=== PATIENT | female | born 1945 | race Caucasian/White ===

== ENCOUNTER 2017-02-06 14:40 | Outpatient (CLI) | payer MEDICARE, OTHER ==
[2015-10-20 11:43] VITALS: BP 164/87
== END 2017-02-06 14:42 ==
LOC: POD 14:40
PROVIDERS: ATTEND Podiatrist
DX: B35.1 Tinea unguium (principal); M79.674 Pain in right toe(s); M79.675 Pain in left toe(s)
CPT/HCPCS: 11721; G0463

== ENCOUNTER 2017-05-05 10:36 | Outpatient (CLI) | payer MEDICARE, OTHER ==
[2015-10-20 11:43] VITALS: BP 164/87
== END 2017-05-05 12:36 ==
LOC: LABRHC 10:36
PROVIDERS: ATTEND Family Medicine
DX: N39.0 Urinary tract infection, site not specified (principal)
CPT/HCPCS: 87086

== ENCOUNTER 2017-05-08 13:35 | Outpatient (CLI) | payer MEDICARE, OTHER ==
[2015-10-20 11:43] VITALS: BP 164/87
== END 2017-05-08 13:45 ==
LOC: POD 13:35
PROVIDERS: ATTEND Podiatrist
DX: B35.1 Tinea unguium (principal); M79.674 Pain in right toe(s); M79.675 Pain in left toe(s)
CPT/HCPCS: 11721; G0463

== ENCOUNTER 2017-08-07 13:26 | Outpatient (CLI) | payer MEDICARE, OTHER ==
[2015-10-20 11:43] VITALS: BP 164/87
== END 2017-08-07 13:27 ==
LOC: POD 13:26
PROVIDERS: ATTEND Podiatrist
DX: B35.1 Tinea unguium (principal); M79.674 Pain in right toe(s); M79.675 Pain in left toe(s)
CPT/HCPCS: 11721; G0463

== ENCOUNTER 2017-09-03 16:07 | Outpatient (CLI) | payer MEDICARE, OTHER ==
[2015-10-20 11:43] VITALS: BP 164/87
== END 2017-09-03 16:10 ==
LOC: LABRHC 16:07
PROVIDERS: ATTEND Family Medicine
DX: R30.0 Dysuria (principal)
CPT/HCPCS: 87086; 87186

== ENCOUNTER 2017-09-26 08:56 | Emergency (ER) | payer MEDICARE, OTHER ==
--- NOTE | 2017-09-26 09:13 | ED Physician Documentation ---
Epistaxis - HISTORIAN Historian: patient, spouse - HPI Stated Complaint: nose bleed x 2 hours Chief Complaint: Epistaxis Onset: hours (2) Timing: still present Location: bilateral Severity: mild Associated Symptoms: headache. denies: recent injury, recent illness, fever, chills, sweating, nausea, vomiting blood, light-headedness Further Comments: yes (she states she has had this issue in the past although her PCP knows and did treat her for sinus issues She denies any injury. She does report she is a frequent nose blower and she has had sinus drainage) - ROS MS/SKIN/LYMPH: denies: excessive bruising, bleeding from gums, bleeding from GI , bleeding from , swollen glands, joint pain EYES/ENT: denies: problems with vision, sore throat GI/: denies: black stool, problems urinating CVS/RESP: denies: chest pain NEURO/PSYCH: denies: dizziness, anxiety, depression - PAST HX Past History: other (HTN, depression and hyperlipidemia ) Other History: other (Lip cancer ) Immunizations: referred to PCP Allergies/Adverse Reactions: Allergies Allergy/AdvReac Type Severity Reaction Status Date / Time No Known Allergies Allergy Verified 09/26/17 09:15 Home Medications: Ambulatory Orders Medication Instructions Recorded Acetaminophen [Tylenol Extra 500 mg PO Q8H PRN 01/17/13 Strength] Aspirin 81 mg PO D 01/17/13 Calc/D3/Mag/Zn/[place] Blocker/[place] 1 each PO D 01/17/13 [Calcium 600 Mg + Vit D Tab] Polyethylene Glycol 3350 [Miralax] 17 gm PO D PRN 01/17/13 - SOCIAL HX Smoking History: non-smoker Alcohol Use: none Drug Use: none - FAMILY HX Family History: No - VITAL SIGNS Vital Signs: Vital Signs Temp Pulse Resp BP Pulse Ox 164/87 10/20/15 11:59 - REVIEWED ASSESSMENTS Nursing Assessment Reviewed: Yes Vitals Reviewed: Yes Epistaxis Physical Exam - EXAM General Appearance: no acute distress, alert Nose: nml inspection, fresh clots (L), fresh clots (R), active bleeding (L), minimal. No: foreign body (R), foreign body (L) Eyes/Ears: eyes nml inspection, PERRL Mouth: lips nml, gums nml, pharynx nml Neuro/Psych: oriented x3, neuro intact, mood/affect nml Respiratory: no resp distress CVS: reg rate & rhythm, heart sounds normal, no murmur Skin: nml color, no skin rash Discharge Clincal Impression: Epistaxis not due to trauma Referrals: Lexus Singleton MD [Primary Care Provider] - 2 Days Condition: Stable Disposition: 01 HOME, SELF-CARE Decision to Admit: NO Date of Decison to Admit: 09/26/17 Decision Time: 09:47
[2017-09-26] MEDS: OXYMETAZOLINE HCL 0.05% NASAL SPRAY NS ONE ×2 (09:27→09:30)
[2017-09-26 10:16] VITALS: BP 135/77
== END 2017-09-26 09:51 | disposition home or self-care (01) ==
LOC: ED 08:56
DX: R04.0 Epistaxis (principal)
CPT/HCPCS: 99283

== ENCOUNTER 2017-10-19 13:05 | Outpatient (CLI) | payer MEDICARE, OTHER | END 2017-10-19 13:06 | LOC: LABRHC 13:05 | PROVIDERS: ATTEND Family Medicine | DX: R30.0 Dysuria (principal) | CPT/HCPCS: 87086; 87186 ==

== ENCOUNTER 2017-11-03 13:44 | Outpatient (CLI) | payer MEDICARE, OTHER | END 2017-11-03 13:45 | LOC: POD 13:44 | PROVIDERS: ATTEND Podiatrist | DX: B35.1 Tinea unguium (principal); M79.674 Pain in right toe(s); M79.675 Pain in left toe(s) | CPT/HCPCS: 11721; G0463 ==

== ENCOUNTER 2018-01-22 13:45 | Outpatient (CLI) | payer MEDICARE, OTHER | END 2018-01-22 13:50 | LOC: POD 13:45 | PROVIDERS: ATTEND Podiatrist | DX: B35.1 Tinea unguium (principal); M79.674 Pain in right toe(s); M79.675 Pain in left toe(s) | CPT/HCPCS: 11721; G0463 ==

== ENCOUNTER 2018-03-30 15:27 | Outpatient (CLI) | payer MEDICARE, OTHER | END 2018-03-30 15:30 | LOC: POD 15:27 | PROVIDERS: ATTEND Podiatrist | DX: B35.1 Tinea unguium (principal); M79.674 Pain in right toe(s); M79.675 Pain in left toe(s) | CPT/HCPCS: 11721; G0463 ==

== ENCOUNTER 2018-09-17 11:50 | Outpatient (CLI) | payer MEDICARE, OTHER ==
[2018-09-17 17:02] LABS: DIRECT BILIRUBIN <0.2 mg/dL (<0.4)
== END 2018-09-17 11:52 ==
LOC: LAB 11:50
PROVIDERS: ATTEND Podiatrist Foot & Ankle Surgery
DX: B35.1 Tinea unguium (principal)
CPT/HCPCS: 36415; 80076

== ENCOUNTER 2018-11-23 09:03 | Outpatient (CLI) | payer MEDICARE, OTHER ==
[2018-11-23 18:01] LABS: DIRECT BILIRUBIN <0.2 mg/dL (<0.4)
== END 2018-11-23 09:06 ==
LOC: LAB 09:03
PROVIDERS: ATTEND Podiatrist Foot & Ankle Surgery
DX: B35.1 Tinea unguium (principal)
CPT/HCPCS: 36415; 80076

== ENCOUNTER 2018-12-03 08:09 | Outpatient (CLI) | payer MEDICARE, OTHER ==
--- NOTE | 2018-12-03 18:39 | Diagnostic Imaging Report ---
JING DOMINGUEZ [facility] [address] [facility] [address] [place] [address]. [id number] Report Submission Date: Dec 03, 2018 9:21:28 AM FLAT BREAKDOWN PROCESSOR Patient Study Name: CHASITY FARRAR Date: Dec 03, 2018 8:33:50 AM FLAT BREAKDOWN PROCESSOR Modality Type: US Gender: F Description: US RENAL : 45 Institution: [facility] Physician: JING DOMINGUEZ Examination: Ultrasound kidneys History: Cyst found on kidneys on a MRI because of back pain Comparison exams: None provided. Findings: Right kidney measures 12.0 cm in length. Left kidney measures 11.2 cm in length. No evidence for cortical mass bilaterally. Cyst of the inferior margin the right kidney measuring 3.7 x 3.5 x 3.6 cm. Mid left kidney cortical cyst measuring 3.0 x 3.6 x 3.0 cm. No abnormal dilation of the intrarenal collecting system. Visualized bladder margin without gross irregularity. Bladder volume 237 mL. Impression: Bilateral renal cysts. No evidence for cortical mass or obstruction. Electronically signed on Dec 03, 2018 9:21:28 AM FLAT BREAKDOWN PROCESSOR by: Calderon CARDONA
== END 2018-12-03 08:15 ==
LOC: RAD 08:09
PROVIDERS: ATTEND Family Medicine
DX: N28.1 Cyst of kidney, acquired (principal)
CPT/HCPCS: 76775

== ENCOUNTER 2018-12-06 15:41 | Outpatient (CLI) | payer MEDICARE, OTHER ==
[2018-12-06 17:44] LABS: eGFR (Non-African) > 60
== END 2018-12-06 15:43 ==
LOC: LAB 15:41
PROVIDERS: ATTEND Family Medicine
DX: N28.1 Cyst of kidney, acquired (principal)
CPT/HCPCS: 36415; 80048

== ENCOUNTER 2019-03-29 10:03 | Outpatient (CLI) | payer MEDICARE, OTHER ==
--- NOTE | 2019-03-29 11:15 | Diagnostic Imaging Report ---
JING DOMINGUEZ [facility] [address] [address] Report Submission Date: March 29, 2019 11:14:08 AM CDT Patient Study Name: CHASITY FARRAR Date: March 29, 2019 12:00:00 AM CDT Modality Type: DEXA\OT Gender: F Description: : 45 Institution: [facility] Physician: JING DOMINGUEZ Examination: Bone density History: Assess bone mineralization Comparison exams: 30 December 2010 Technique: DEXA protocol Findings: Average bone mineral density from L1 through L4: 1.452 grams cm2. T score: 2.1 Average bone mineral density of the left femoral neck: 1.008 grams cm2. T score: -0.2 Average bone mineral density of the right femoral neck: 1.136 grams cm2. T score: 1.0 Impression: Normal lumbar spine and hip mineralization for age Electronically signed on March 29, 2019 11:14:08 AM CDT by: Calderon CARDONA
== END 2019-03-29 10:04 ==
LOC: RAD 10:03
PROVIDERS: ATTEND Family Medicine
DX: M81.0 Age-related osteoporosis without current pathological fracture (principal)
CPT/HCPCS: 77080

== ENCOUNTER 2019-04-28 20:22 | Emergency (ER) | payer MEDICARE, OTHER ==
[2019-04-28] MEDS ORDERED: NORMAL SALINE 1,000 ML IV.SOLN IV ONE (20:57)
[2019-05-09 08:43] LABS: BASOPHILS % 0.5 % (0.0-1.5); NEUTROPHILS # 5.3 # k/uL (1.4-7.7); eGFR (Non-African) > 60
[2019-05-09 08:46] LABS: APPEARANCE,URINE CLEAR (CLEAR); COLOR,URINE YELLOW (YELLOW)
[2019-05-09 08:47] LABS: OCCULT BLOOD,URINE NEGATIVE (NEGATIVE)
--- NOTE | 2019-06-16 18:24 | Diagnostic Imaging Report ---
KENDALL MENDIOLA [facility] [address] [facility] [address] [place], [place]. [address] Report Submission Date: Apr 28, 2019 9:32:04 PM CDT Patient Study Name: CHASITY FARRAR Date: Apr 28, 2019 9:17:46 PM CDT Modality Type: CT\SR Gender: F Description: CT HEAD W/O : 45 Institution: [facility] Physician: KENDALL MENDIOLA CT Brain without Contrast History: Dizziness, chest pain for 1 day Technique: Transaxial CT was performed without contrast from the skull base to the vertex. Findings: Scattered bilateral white matter hypodensity is present, consistent with gliosis. Mild cerebral atrophy is present. The lateral ventricles are mildly dilated. No hemorrhage or edema-producing mass. The fourth ventricle is midline. The paranasal sinuses are clear. No skull fracture. The mastoid air cells are well developed and well aerated. Impression: 1. Mild cerebral atrophy and white matter gliosis. 2. No acute cerebral pathology. Electronically signed on Apr 28, 2019 9:32:04 PM CDT by: Gary Hernández [facility], [place]
--- NOTE | 2019-06-16 18:32 | Diagnostic Imaging Report ---
KENDALL MENDIOLA [facility] [address] [facility] [address] [place], [place]. [address] Report Submission Date: Apr 28, 2019 9:57:34 PM CDT Patient Study Name: CHASITY FARRAR Date: Apr 28, 2019 9:30:01 PM CDT Modality Type: DX Gender: F Description: CHEST 1VIEW : 45 Institution: [facility] Physician: KENDALL MENDIOLA Chest, 1 view History: Dizziness, chest pain x1 day Findings: Patient's large body habitus limits evaluation of the lower lung quijano. The heart size is normal. Mild atherosclerosis present of the aorta. The lungs are clear. There is no pleural effusion or pneumothorax identified. The osseous structures are normal. Impression: 1. No acute pulmonary disease. Electronically signed on Apr 28, 2019 9:57:34 PM CDT by: Gary CARDONA
== END 2019-04-28 23:18 ==
LOC: ED 20:22
DX: R42 Dizziness and giddiness (principal); R07.89 Other chest pain
CPT/HCPCS: 70450; 71045; 80053; 81002; 82550; 82553; 83880; 84484; 85025; 85610; 85730; J7030; S1016